=== PATIENT | born 1975 | race Caucasian/White ===

== ENCOUNTER 2025-10-31 09:38 | Emergency (ER) | payer BC, SELFPAY ==
[2025-10-31 10:27] VITALS: BP 118/82; PULSE 73; RESP 18; TEMP 36.4; O2SAT 98; BMI 37.3
--- NOTE | 2025-10-31 10:38 | CRLHL7_ITS ---
For Patients: As a result of the Century Cures Act, medical imaging exams and procedure reports are released immediately into your electronic medical record. You may view this report before your referring provider. If you have questions, please contact your health care provider. INDICATION: Pain and swelling TECHNIQUE: Ultrasound venous duplex lower right extremity. Compression venous exam was performed using monzon-scale, color Doppler, and spectral Doppler imaging. COMPARISON: None. FINDINGS: Sonographic imaging demonstrates the right common femoral, deep femoral, superficial femoral, popliteal, posterior tibial and the contralateral left common femoral veins to be fully compressible with normal color Doppler blood flow. Demonstration of likely postoperative change of the greater saphenous vein with minimal postprocedure thrombus. IMPRESSION: No evidence of deep venous thrombosis. Likely expected postoperative changes status post saphenous vein ablation. Dictated by Gregory Huerta MD @ 10/31/2025 1:47:00 PM (Electronically Signed)
[2025-10-31 13:08] VITALS: BP 137/79; PULSE 80; RESP 20; TEMP 36.3; O2SAT 95
--- NOTE | 2025-10-31 13:18 | ED.GENADULT ---
HPI - General Adult General Chief complaint: Extremity Pain/Injury, Lower Stated complaint: Possible DVT R leg sore Time Seen by Provider: 10/31/25 11:16 History of Present Illness HPI narrative: This 50-year-old female comes in reporting right lower extremity pain for the past couple days. She has a history of deep venous thrombosis and is scheduled to be taking Eliquis. 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 She does not report any significant injury event to bring on these symptoms. She did have a long plane ride and it was after that that she was feeling some pain more in the lateral aspect of her right calf. She does not have any chest pain or shortness of breath. She arrives here with normal vital signs. Related Data Home Medications ?Medication ?Instructions ?Recorded ?Confirmed apixaban PO BID 10/31/25 atorvastatin PO DAILY 10/31/25 citalopram 20 mg tablet 20 mg PO DAILY 10/31/25 10/31/25 humeria .weekly 10/31/25 semaglutide subcut 10/31/25 Allergies Allergy/AdvReac Type Severity Reaction Status Date / Time meperidine (From Demerol) Allergy Intermediate violently Verified 10/31/25 10:37 sick Review of Systems Status of ROS: Reports: 10 or more systems reviewed and unremarkable except as noted in History and below Narrative: Constitutional: No fevers, no weight gain or loss. Eyes: No discharge. No vision changes. HENT: No congestion, no sore throat, no ear pain. Cardiovascular: No chest pain, no palpitations. Respiratory: No shortness of breath, no wheezes, no cough. Gastrointestinal: No abdominal pain, no vomiting, no diarrhea. Genitourinary: No dysuria, no hematuria. Musculoskeletal: Normal range of motion. Skin: No rashes, no pruritis. Neurological: No dizziness, weakness, sensory change, speech change. Endo/Heme/Allergies: No bruising or bleeding. No polydipsia. Pysch: no suicidality, no anxiety, no insomnia. All other systems reviewed and are negative. PFS PFS Social History Smoking Status: Never smoker How often do you have a drink containing alcohol: never How often do you have six or more drinks on one occasion: Never AUDIT-C Alcohol total score: 0 Non-prescribed substance use: denies use Exam Narrative: Exam Narrative: Constitutional: Well-developed, well-nourished, no acute distress. HEENT: Normocephalic, atraumatic. Neck: Normal range of motion. Nontender. Supple. Heart: Regular. No murmurs. Normal rate. Intact distal pulses. Lungs: Clear to auscultation. No chest discomfort. No wheezes, rhonchi, or rales. Abdomen: Normal bowel sounds. Nontender. No rebound tenderness. Genitalia: Deferred. Back: No midline tenderness. Normal range of motion. Extremities: Normal range of motion. No injury. Pain in the posterior lateral aspect of her right calf. No unilateral leg swelling. Skin: Intact. No rash. Warm. No erythema or pallor. Neurologic: No altered sensation. No weakness. Alert and oriented. Psychiatric: No suicidality. No anxiety or depression. No insomnia. Nursing notes and vitals signs are reviewed. Const: Vital Signs, click to edit/add: Vital Signs - 24 hr 10/31/25 10:27 10/31/25 13:08 Temperature 97.5 F 97.4 F Pulse Rate [Pulse Oximeter] 73 80 Respiratory Rate 18 20 Blood Pressure [Ri ght Upper Arm] 118/82 137/79 Pulse Oximetry 98 95 Oxygen Delivery Me thod Room Air Room Air Course Vital Signs Vital signs: Initial Vital Signs Temperature 97.5 F 10/31/25 10:27 Temperature Source Temporal Artery Scan 10/31/25 10:27 Pulse Rate 73 10/31/25 10:27 Respiratory Rate 18 10/31/25 10:27 Blood Pressure 118/82 10/31/25 10:27 Blood Pressure Mean 94 10/31/25 10:27 Blood Pressure Position Sitting 10/31/25 10:27 Pulse Oximetry 98 10/31/25 10:27 Oxygen Delivery Method Room Air 10/31/25 10:27 Vital Signs Temperature 97.5 F 10/31/25 10:27 Pulse Rate 73 10/31/25 10:27 Respiratory Rate 18 10/31/25 10:27 Blood Pressure 118/82 10/31/25 10:27 Pulse Oximetry 98 10/31/25 10:27 Oxygen Delivery Method Room Air 10/31/25 10:27 Temperature 97.4 F 10/31/25 13:08 Pulse Rate 80 10/31/25 13:08 Respiratory Rate 20 10/31/25 13:08 Blood Pressure 137/79 10/31/25 13:08 Pulse Oximetry 95 10/31/25 13:08 Oxygen Delivery Method Room Air 10/31/25 13:08 Medical Decision Making MDM Narrative Medical decision making narrative: This patient comes in with concern that she may have a clot in her leg. 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 An ultrasound is obtained and does show clot involving this area. There is no evidence of deep venous thrombus. The patient does have Eliquis at home and states to me that she will be more diligent to take this medicine as prescribed. Discharge Plan Discharge Clinical Impression: Lower extremity pain Patient Disposition: Home, Self-Care Condition: Stable Additional Instructions: Take Eliquis as prescribed. Continue other current plans. Activity as tolerated. Follow up with MD return if worsening. Prescriptions: No Action apixaban [Eliquis] PO BID Patient Comments: unsure dose humeria .weekly Patient Comments: 1 shot once a week semaglutide [Ozempic] subcut Patient Comments: max dose once a week citalopram 20 mg tablet 20 mg PO DAILY atorvastatin PO DAILY Stand Alone Forms: Cloudy Days Info Instructions
--- OUTSIDE RECORDS SUMMARY | 2025-10-31 13:33 | XMS_ITS | Clinical Summary ---
Author Organization [facility] Address [address] [place] [id number] Care Team Providers Care Overlocker Name Role Phone Pcp, No Primary Care Provider Unavailabl e Allergies Active AllergyReactionsCriticalityNoted DateCommentsMeperidineNausea And Ongzykpm19/08/2016 Medications MedicationSigDispense QuantityRefillsLast FilledStart DateEnd DateStatus XARELTO 10 mg tablet 04/09/2018Active citalopram (CELEXA) 10 mg tablet Take 10 mg by mouth once daily.Active diazePAM CONCENTRATE (DIAZEPAM INTENSOL) 5 mg/mL solution Take by mouth.Active benzonatate (TESSALON) 100 mg capsule Indications:Post-viral cough syndromeTake 1 Capsule (100 mg) by mouth 3 times daily if needed for Cough. 21 Capsule 09/01/2022ctive Active Problems ProblemNoted DateDiagnosed DateHistory of DVT (deep vein thrombosis)05/03/2018 Immunizations ImmunizationAdministration DatesNext DueCOVID-19 vaccine (Moderna 100mcg/0.5mL) PF, MDV11/13/2021Influenza, IIV3 (Age 6-35 mos)09/06/2013Influenza, IIV3 (Age >=3 years)08/24/2006Influenza, BUW557,06/27/2019,10/16/2016 Influenza,CCIIV4 PRESERV FREE08/22/2020Tdap01/11/2018,08/05/2007 Family History Medical HistoryRelationNameCommentsGood HealthFatherwatches BP and SugarsGood HealthMotherCancer-colonPaternal AuntCancer-colonPaternal GrandmotherRelation NameStatusCommentsFatherMotherPaternal AuntPaternal Grandmother Social History Tobacco UseTypesPacks/DayYears UsedDateSmoking Tobacco: NeverSmokeless Tobacco: Never Tobacco Cessation:Counseling Given: Yes Alcohol UseStandard Drinks/WeekCommentsNo0 (1 standard drink = 0.6 oz pure alcohol)Social ConnectionsAnswerDate RecordedFrequency of Communication with Friends and FamilyNot on file09/01/2022CommentsNoSex and Gender InformationValueDate RecordedSex Assigned at BirthNot on fileLegal SexFemale 11/22/2012 5:40 AM CSTGender IdentityNot on fileSexual OrientationNot on file OccupationIndustryJob Start DateJob End DateNot on fileNot on fileNot on fileNot on file Obstetrics History GravidaParaTermPretermABIABSABEctopicMultipleLivingLive Hgfxev570357QvcsCjvqjby GATotal LaborLabor/2nd/7nwBpmrriBqqMopoDnpwEHXRsiL6O7TwilPymlXGKXydkNpziEcmvDkmm Last Filed Vital Signs Vital SignReadingTime TakenCommentsBlood Vhxkalay047/7610 11:14 AM CDT Cfbmk635109/01/2022 11:14 AM YCTOicclgvqvlg48.7 ??C (98 ??F)09/01/2022 11:14 AM CDTRespiratory Rate--Oxygen Cnnzonthya20%09/01/2022 11:14 AM CDTInhaled Oxygen Concentration--Jxauus557.3 kg (230 lb)09/17/2019 8:34 AM OZZChxvar405 cm (5' 3) 05/03/2018 4:24 PM CDTBody Mass Index40.7405/03/2018 4:24 PM CDT Plan of Treatment Health MaintenanceDue DateLast DoneCommentsHIV for age 15-Hepatitis C screening for age 18-Hepatitis B series for 19+ (1 of 3 - 19+ 3- dose series)1996Pap test for age 21-650//, 11/15/2010, 08/05/2007, Additional history existsDepression screening for age 12+10/16/2017 10/16/2016BMI (ht and wt on same day) for age 18+, 10/16/2016Colonoscopy through age 75006/19/2022Lipids for age 45- Mammogram for age 40-OVID-19 vaccine series (3 - 2024- season) 5011/13/2021, 02/13/2021Influenza Vaccine (#1)512/, 08/22/2020, 06/27/2019, Additional history existsTetanus tkdutkv9901/12/2028 01/11/2018, 08/05/2007Pneumococcal series for age 6-49Aged OutNo longer eligible based on patient's age to complete this topic Procedures Procedure NamePriorityDate/TimeAssociated DiagnosisCommentsHPV HIGH RISKTimed 11/15/2010 7:59 AM DEPUTY BAILIFF from Last 3 Months or Most Recently Relevant to Health Maintenance Results * HPV THIN PREP (11/15/2010 7:59 AM DEPUTY BAILIFF)ComponentValueRef RangeTest Method Analysis TimePerformed AtPathologist SignatureSPECIMEN/SOURCECervixABBOLAKEVIEW HOSPITALHPV RESULTSHigh/Intermediate risk HPV not present. Types tested include: 16,18,31,33,35,39,45,51,52,56,58,59,68 Methodology: Digene Hybrid Capture IIABBOLMSTED MEDICAL CENTERpecimen (Source)Anatomical Location / LateralityCollection Method / VolumeCollection TimeReceived Time11/15/2010 7:59 AM CST11/18/2010 7:59 AM DEPUTY BAILIFF Narrative Authorizing ProviderResult TypeResult StatusMelamie Marti MDMICROBIOLOGYFinal ResultPerforming OrganizationAddressCity/State/ZIP CodePhone Number [facility] [place]NAL ZIP [phone] [address] from Last 3 Months or Most Recently Relevant to Health Maintenance Insurance * Guarantor: Margaret Russell TypeRelation to PatientDate of PhoneBilling AddressPersonal/JyfhsaOvvp1975 [id number] [address] [place] [address] Care Teams Team MemberRelationshipSpecialtyStart DateEnd Date Pcp, Shivani PCP - [facility]05/21/23
--- OUTSIDE RECORDS SUMMARY | 2025-10-31 13:34 | XMS_ITS | Clinical Summary ---
Author Organization [facility] Address [address] [place] [address]. [place] [address] Care Team Providers Care District Resource Officer Name Role Phone Melani Marti MD Unavailable [phone] Tess Hale PA-C Unavailable No Ref-Primary, Physician Primary Care Provider Allergies Active AllergyReactionsCriticalityNoted DateCommentsMeperidineNausea and Scowapcb71/19/2016 Medications MedicationSigDispense QuantityRefillsLast FilledStart DateEnd DateStatus citalopram (CELEXA) 10 MG tablet Indications:Mixed anxiety depressive disorderTake 1 tablet (10 mg) by mouth daily 90 tablet ctive diazepam (VALIUM) 5 MG tablet Indications:Mixed anxiety depressive disorderTake 1 tablet (5 mg) by mouth every 8 hours as needed for anxiety 30 tablet 03/08/2023ctive adalimumab (HUMIRA *CF*) 80 MG/0.8ML pen kit Indications:Hidradenitis suppurativaInject 160 mg on day 1, then 80 mg 2 weeks later (day 15), followed by 40 mg every week beginning day 29 (see separate order) 2.4 mL 06/12/2023ctive atorvastatin (LIPITOR) 10 MG tablet Take 10 mg by mouth at lspahny3112/11/2023ctive clindamycin (CLEOCIN T) 1 % external solution Indications:Hidradenitis suppurativaApply topically 2 times daily 60 mL 1104Active OZEMPIC, 0.25 OR 0.5 MG/DOSE, 2 MG/3ML pen 0.5 MG (0.736 ML) SUBCUTANEOUSLY EVERY WEEK FOR 4 WEEKS02/26/2024ctive ELIQUIS ANTICOAGULANT 2.5 MG tablet Take 1 tablet by mouth 2 times daily01/20/2024ctive Adalimumab (HUMIRA *CF*) 40 MG/0.4ML pen kit Indications:Hidradenitis suppurativaInject 0.4 mLs (40 mg) subcutaneously every 7 days. 1.6 mL ctive Active Problems ProblemNoted DateDiagnosed DateMorbid tutfmcv1906/25/2018History of DVT (deep vein thrombosis)05/03/2018 Immunizations ImmunizationAdministration DatesNext DueInfluenza Vaccine 18-64 (Flublok) 06/27/2019TDAP Vaccine (Adacel)08/05/2007 Family History Medical HistoryRelationCommentsDiabetesFatherHypertensionFatherDiabetesMaternal GrandmotherColon CancerPaternal GrandmotherAnesthesia ReactionNo family hx of Anxiety DisorderNo family hx ofAsthmaNo family hx ofBreast CancerNo family hx of Cerebrovascular DiseaseNo family hx ofCoronary Artery DiseaseNo family hx of DepressionNo family hx ofGenetic DisorderNo family hx ofHyperlipidemiaNo family hx ofMelanomaNo family hx ofMental IllnessNo family hx ofObesityNo family hx of OsteoporosisNo family hx ofOther CancerNo family hx ofProstate CancerNo family hx ofSkin CancerNo family hx ofSubstance AbuseNo family hx ofThyroid DiseaseNo family hx ofUnknown/AdoptedNo family hx ofRelationStatusCommentsFatherAlive Maternal GrandmotherMotherAlivePaternal Grandmother Social History Tobacco UseTypesPacks/DayYears UsedDateSmoking Tobacco: NeverSmokeless Tobacco: Never Tobacco Cessation:Counseling Given: Not Answered Alcohol UseStandard Drinks/WeekCommentsYes0 (1 standard drink = 0.6 oz pure alcohol)occas. usePHQ-2AnswerDate RecordedPHQ-2 Gkvxa067dolescent EducationAnswerDate RecordedGetting School Help NeededNot on file07/31/2023 CommentsNoSex and Gender InformationValueDate RecordedSex Assigned at BirthNot on fileLegal RjuOgzumg99/17/2016 10:43 AM CDTGender IdentityNot on file Sexual OrientationNot on file Last Filed Vital Signs Vital SignReadingTime TakenCommentsBlood Kiznschv130/6007 9:35 AM CDT Kbwbz936310/25/2021 1:50 PM CSTTemperature--Respiratory Uvnm103102/26/2016 8:36 AM CDTOxygen Saturation--Inhaled Oxygen Concentration--Rbhgle51.4 kg (217 lb) 05/25/2025 9:35 AM HLFLhkmdg877.5 cm (5' 2)03/05/2023 1:03 PM CDTBody Mass Index39.69003/05/2023 1:03 PM CDT Plan of Treatment DateTypeDepartmentCare Team (Latest Contact Info)Qvzucghhgpu38/17/2026 7:00 AM CDTOffice Visit [facility] [address] [place] [address] Tess Hale PA-C [address] [place] [address] Health MaintenanceDue DateLast DoneCommentsADVANCE CARE PNDIYPNM1977ANNUAL REVIEW OF HM ADGREQ4406/19/1977CT ZJLRWTTHKJDC1977DIABETIC FOOT EXAM 1977FIT1977FLEX SIG06/19/19772343BRQCUUGYRFSA1977sDNA (Cologuard) 06/19/19776203MJKKGGAXWNU55/11/1987COLORECTAL CANCER LZZCKZNVU29/11/1987HIV EKYXHDXQT47/11/1992HEPATITIS B VACCINE (1 of 3 - 19+ 3-dose series)1996 PNEUMOCOCCAL VACCINE: PEDIATRICS (0 to 5 YEARS) AND AT-RISK PATIENTS (6 to 49 YEARS) (1 of 2 - PCV)1996ZOSTER VACCINE (1 of 2)1996A1C04/28/2025 01/26/2025EYE EXAM/OVID-19 VACCINE (3 - 2024- season) 501/03/2022, 02/13/2021INFLUENZA VACCINE (#1)501/08/2023, 11/07/2021, 08/22/2020, Additional history tmnvgmXYV22/511/03/2024, 06/12/20235940YYOGB30/, 06/25/2018, 12/22/2014, Additional history existsMAMMO KUCACLFJX41/, 03/07/2024, 03/06/2023, Additional history existsYEARLY PREVENTIVE VISIT/, 03/15/2024, 03/05/2023, Additional history existsHPV TEST/05/2024, 05/03/2021, 02/26/2016, Additional history yhpchzTPT38/05/2024, 05/03/2021, 02/26/2016, Additional history existsDTAP/TDAP/TD VACCINE (3 - Td or Tdap) , 08/05/2007HEPATITIS C OWSRIBLBOQrirsgbar51/04/2023PHQ-2 (once per calendar year)Ymxurrzia42/17/2025, 01/04/2024, 03/05/2023, Additional history existsHPV VACCINE (No Doses Required)CompletedMENINGITIS VACCINEAged Out No longer eligible based on patient's age to complete this topic Procedures Procedure NamePriorityDate/TimeAssociated DiagnosisCommentsMA SCREENING BILATERAL W/ VSHFCpjwpzf93/17/2025 8:40 AM CDT Visit for screening mammogram LIPID PANEL (EXTERNAL RESULT)Kmjatih1301/26/2025 9:56 AM CDT HEMOGLOBIN A1C (EXTERNAL RESULT)Nnmgiay3801/26/2025 9:56 AM CDT COMPREHENSIVE METABOLIC NYWDGCmqbghc43/05/2024 1:33 PM PAYROLL OFFICER Hidradenitis suppurativa GYNECOLOGIC QSFGDYEMYquenlx69/07/2024 9:07 AM CDT Screening for cervical cancer HPV HIGH RISK TYPES DNA OKWVCDTKVhwrsvd68/07/2024 9:07 AM CDT Screening for cervical cancer HEPATITIS C UXOBXFFCPfuczcc74/04/2023 11:50 AM CDT Hidradenitis suppurativa from Last 3 Months or Most Recently Relevant to Health Maintenance Results * MA Screening Bilateral w/ Jack (05/25/2025 8:40 AM CDT)Anatomical Region LateralityModalityBreastBilateralMammographySpecimen (Source)Anatomical Location / LateralityCollection Method / VolumeCollection TimeReceived Time Impressions 05/25/2025 10:36 AM CDT IMPRESSION: ACR BI-RADS Category 1: Negative BREAST CANCER SCREENING RECOMMENDATION: Routine yearly mammography beginning at age 40 or as discussed with your provider. The results and recommendations of this examination will be communicated to the patient. Elle Lamb MD Narrative 05/25/2025 10:36 AM CDT BILATERAL FULL FIELD DIGITAL SCREENING MAMMOGRAM WITH TOMOSYNTHESIS Performed on: 05/25/25 Compared to: 03/07/2024, 03/06/2023, and 04/02/2021 Technique: ??This study was evaluated with the assistance of Computer-Aided Detection. ??Breast Tomosynthesis was used in interpretation. Findings: The breasts are almost entirely fatty. ??There is no radiographic evidence of malignancy. Authorizing ProviderResult TypeResult StatusMelani SAGASTUME MAMMOGRAPHY ORDERABLESFinal Result * Lipid Panel (External Result) (01/26/2025 9:56 AM CDT)ComponentValueRef Range Test MethodAnalysis TimePerformed AtPathologist SignatureCholesterol (External)48712 - 199 mg/dLALLINA HEALTH FARIBAULT MEDICAL CENTERTriglycerides (External)6840 - 149 mg/dLALLINA HEALTH FARIBAULT MEDICAL CENTERHDL Cholesterol (External)76>=50 mg/dLALLINA HEALTH FARIBAULT MEDICAL CENTERLDL Cholesterol Calculated (External)69<100 mg/dLALLINA HEALTH FARIBAULT MED[facility]ENTER Specimen (Source)Anatomical Location / LateralityCollection Method / Volume Collection TimeReceived ItybMxsua25/20/2025 9:56 AM CDT [facility] - 01/26/2025 9:56 AM CDT [facility]- External Lab Results Authorizing ProviderResult TypeResult StatusProvider OutsideDEPARTMENT OF VETERANS [facility] EXTERNAL RESULTFinal ResultPerforming OrganizationAddressCity/State/ZIP CodePhone Number [facility] [address] [place] [address], [facility] [phone] * (ABNORMAL) Hemoglobin A1c (External Result) (01/26/2025 9:56 AM CDT)Component ValueRef RangeTest MethodAnalysis TimePerformed AtPathologist Signature Hemoglobin A1C (External)5.7(A)0 - 5.6 %EXTERNAL LABSpecimen (Source) Anatomical Location / LateralityCollection Method / VolumeCollection Time Received IvxxLhhbk05/20/2025 9:[address] [facility] LAB - 01/26/2025 9:56 AM CDT [facility]- External Lab Results [address], [place] [address] Authorizing ProviderResult TypeResult StatusProvider OutsideDEPARTMENT OF VETERANS [facility] EXTERNAL RESULTFinal ResultPerforming OrganizationAddressCity/State/ZIP CodePhone Number EXTERNAL LAB External Lab * Comprehensive metabolic panel (09/13/2024 1:33 PM PAYROLL OFFICER)ComponentValueRef Range Test MethodAnalysis TimePerformed AtPathologist XzlvucasyPtnrzn802174 - 145 mmol/L111/14/2023 3:34 AM CSTUU LABORATORYPotassium4.13.4 - 5.3 mmol/L 09/14/2024 3:34 AM CSTUU LABORATORYCarbon Dioxide (CO2)2622 - 29 mmol/L 09/14/2024 3:34 AM CSTUU LABORATORYAnion Atn569 - 15 mmol/L111/14/2023 3:34 AM CSTUU LABORATORYUrea Mdhbmpbi55.46.0 - 20.0 mg/dL09/14/2024 3:34 AM CSTUU LABORATORYCreatinine0.820.51 - 0.95 mg/dL09/14/2024 3:34 AM [facility]ST[facility] LABORATORY GFR Nkbxpchu70>60 mL/min/1.80f32509/14/2024 3:34 AM CSTUU LABORATORYComment:eGFR calculated using 2020 CKD-EPI equation.Calcium9.48.8 - 10.4 mg/dL09/14/2024 3:34 AM CSTUU LABORATORYComment:Reference intervals for this test were updated on 05/24/2024 to reflect our healthy population more accurately. There may be differences in the flagging of prior results with similar values performed w ith this method. Those prior results can be interpreted in the context of the updated reference intervals.Axhwujov06447 - 107 mmol/L111/14/2023 3:34 AM CSTUU UFWTCBXAZXRifyifi6690 - 99 mg/dL09/14/2024 3:34 AM CSTUU LABORATORYAlkaline Rcwbqivlexe2338 - 150 U/L111/14/2023 3:34 AM CSTUU XUQTWMJXGHWVM457 - 45 U/L 09/14/2024 3:34 AM CSTUU RUMQYQHQUEVXO211 - 50 U/L111/14/2023 3:34 AM CSTUU LABORATORYProtein Total7.46.4 - 8.3 g/dL09/14/2024 3:34 AM [facility]ORATORY Albumin4.23.5 - 5.2 g/dL09/14/2024 3:34 AM CSTUU LABORATORYBilirubin Total0.4 <=1.2 mg/dL09/14/2024 3:34 AM CSTUU LABORATORYSpecimen (Source)Anatomical Location / LateralityCollection Method / VolumeCollection TimeReceived Time BloodBLOOD SPECIMEN / UnknownVenipuncture / Dwmsuoy5409/13/2024 1:33 PM PAYROLL OFFICER 09/13/2024 1:33 PM PAYROLL OFFICER Narrative Authorizing ProviderResult TypeResult StatusDeana Nancy PEMBERTONCLAB - BLOOD ORDERABLESFinal ResultPerforming OrganizationAddressCity/State/ZIP Code Phone Number U LABORATORY [facility] Core Lab [address] [facility], [address] [place] [address], [facility] * Pap imaged thin layer screen with HPV - recommended age 30 - 65 (03/15/2024 9:07 AM CDT)ComponentValueRef RangeTest MethodAnalysis TimePerformed At Pathologist SignatureInterpretationNegative for Intraepithelial Lesion or Malignancy (NILM)03/18/2024 9:59 AM CDTUM SPECIALTY LABS at 0959 CDTComment Papanicolaou Test Limitations: Cervical cytology is a screening test with limited sensitivity, and regular screening is critical for cancer prevention. Pap tests are primarily effective for the diagnosis/prevention of squamous cell carcinoma, not adenocarcinoma or other cancers. 03/18/2024 9:59 AM CDTUM SPECIALTY LABSSpecimen AdequacySatisfactory for evaluation, endocervical/transformation zone component rnfqhz7003/18/2024 9:59 AM CDTUM SPECIALTY LABSClinical Jerubimzapryejx93/10/2024 9:59 AM CDTUM SPECIALTY LABSReflex TestingYes regardless of tlpzlh3703/18/2024 9:59 AM CDTUM SPECIALTY LABSPrevious Abnormal?No03/18/2024 9:59 AM CDTUM SPECIALTY LABSPerforming Labs The technical component of this testing was completed at [facility]. Stain controls for all stains resulted within this report have been reviewed and show appropriate reactivity.03/18/2024 9:59 AM CDTUM SPECIALTY LABSSpecimen (Source)Anatomical Location / LateralityCollection Method / VolumeCollection TimeReceived TimeBrushingCERVIX UTERI STRUCTURE / UnknownNon-blood Collection / Fhcggev1903/15/2024 9:07 AM CDT03/15/2024 10:48 AM CDT Narrative Authorizing ProviderResult TypeResult StatusMelamie JALLOH Final ResultPerforming OrganizationAddressCity/State/ZIP CodePhone Number SPECIALTY LABS Specialty Lab [address] [facility], [address] [phone] * HPV High Risk Types DNA Cervical (03/15/2024 9:07 AM CDT)ComponentValueRef RangeTest MethodAnalysis TimePerformed AtPathologist SignatureOther HR HPV FyqfquxlGkngadtb19/14/2024 3:58 PM CDTUM MOLECULAR CQLUHQAOGRTFBW39 DNA VevaypnjDigqmvmf43/14/2024 3:58 PM CDTUM MOLECULAR MDNODJSCVYHRUV32 DNA UoldxkiySqxwnfzb08/14/2024 3:58 PM CDTUM MOLECULAR DIAGNOSTICSFINAL DIAGNOSIS This patient's sample is negative for HPV DNA. This test was developed and its performance characteristics determined by the [facility], Molecular Diagnostics Laboratory. It has not been cleared or approved by the FDA.The laboratory is regulated under CLIA as qualified to perform high-complexity testing. This test is used for clinical purposes. It should not be regarded as investigational or for research. METHODOLOGY: The [employer] Abhishek 4800 system uses automated extraction, simultaneous amplification of HPV (L1 region) and beta-globin, followed by real time detection of fluorescent labeled HPV and beta globin using specific oligonucleotide probes. The test specifically identifies types HPV 16 DNA and H PV 18 DNA while concurrently detecting the rest of the high risk types (31, 33, 35, 39, 45, 51, 52,56, 58, 59, 66 or 68). COMMENTS: This test is not intended for use as a screening device for woman under age 30 with normal cervical cytology. Results should be correlated with cytologic and histologic findings. Close clinical followup is recommended. 03/22/2024 3:58 PM CDTUM MOLECULAR DIAGNOSTICSSpecimen (Source)Anatomical Location / LateralityCollection Method / VolumeCollection TimeReceived Time BrushingCERVIX UTERI STRUCTURE / UnknownNon-blood Collection / Edutnxt0903/15/2024 9:07 AM CDT03/21/2024 8:56 AM CDT Narrative Authorizing ProviderResult TypeResult StatusMelani Marti MDLAB - BLOOD ORDERABLESFinal ResultPerforming OrganizationAddressCity/State/ZIP CodePhone Number MOLECULAR DIAGNOSTICS Molecular Diagnostics [address] [facility], [address] [phone] * Hepatitis C antibody (06/12/2023 11:50 AM CDT)ComponentValueRef RangeTest MethodAnalysis TimePerformed AtPathologist SignatureHepatitis C Antibody UpyzndnsgadLojkwmdmjub82/04/2023 5:13 PM CDTUM SPECIALTY CORE/PROT/ENDO Specimen (Source)Anatomical Location / LateralityCollection Method / Volume Collection TimeReceived TimeBloodSTRUCTURE OF LEFT UPPER LIMB / Unknown Venipuncture / Nyzwtkj2706/12/2023 11:50 AM CDT06/12/2023 11:50 AM CDT Narrative SPECIALTY CORE/PROT/ENDO - 06/12/2023 5:13 PM CDT Assay performance characteristics have not been established for newborns, infants, and children. Authorizing ProviderResult TypeResult StatusCristiane Brandon MDLAB - BLOOD ORDERABLESFinal ResultPerforming OrganizationAddressCity/State/ZIP CodePhone Number UM SPECIALTY CORE/PROT/ENDO [facility] Specialty Core/Prot/Endo [address] [facility] [address], [address] [place] [address], [facility] [phone] from Last 3 Months or Most Recently Relevant to Health Maintenance Insurance * Guarantor: Margaret Russell TypeRelation to PatientDate of PhoneBilling AddressPersonal/GvnlzhTygs1975 [id number] [address] [place] [address] * Guarantor: Margaret Russell TypeRelation to PatientDate of PhoneBilling AddressPersonal/LynpofBuji1975 [id number] [address] [address] Care Teams Team MemberRelationshipSpecialtyStart DateEnd Date No Ref-Primary, Physician PCP - [facility]05/15/25 Melani Marti MD [address] [place] [address] Assigned OBGYN Ofhyrtqs71/23/20 Tess Hale PA-C [address] [place] [address] Assigned Dermatology Provider01/29/25
== END 2025-10-31 13:36 | disposition home or self-care (01) ==
LOC: ED 13:30
PROVIDERS: Emergency Provider Emergency Medicine Emergency Medical Services; PCP Family Medicine
DX: M79.661 Pain in right lower leg (principal); T45.516A Underdosing of anticoagulants, initial encounter; Z79.01 Long term (current) use of anticoagulants; Z86.718 Personal history of other venous thrombosis and embolism; Z91.138 Patient's unintentional underdosing of medication regimen for other reason
CPT/HCPCS: 93971; 99284